=== PATIENT | female | born 1955 ===

== ENCOUNTER 2016-10-29 11:49 | Emergency (ER) | payer OTHER ==
[2016-10-29 11:54] VITALS: BP 155/77; PULSE 78; RESP 20; TEMP 98.6; O2SAT 98
--- NOTE | 2016-10-29 12:16 | ED PDOC ---
Lower Extremity Pain/Injury Time Seen by Provider: 10/29/16 11:59 Chief Complaint (Provider): Left ankle swelling History Per: Patient History/Exam Limitations: no limitations Onset/Duration Of Symptoms: Hrs Current Symptoms Are (Timing): Still Present Additional Complaint(s): 61 y/o female presents to the emergency department with a complaint of a left ankle swelling and mild right knee pain after sustaining a fall and landing on her knee around 8am this morning, 10/29/2016. Denies pulling sensation or any popping/cracking sounds. Past Medical History Reviewed: Historical Data, Nursing Documentation, Vital Signs Vital Signs: Last Vital Signs Temp 98.6 F 10/29/16 11:53 Pulse 78 10/29/16 11:53 Resp 20 10/29/16 11:53 BP 155/77 H 10/29/16 11:53 Pulse Ox 98 10/29/16 11:53 - Medical History PMH: No Chronic Diseases - Surgical History Surgical History: No Surg Hx - Family History Family History: States: Unknown Family Hx - Home Medications Home Medications: Ambulatory Orders Medication Instructions Recorded Ibuprofen [Motrin] 600 mg PO Q6 #20 tab 10/29/16 - Allergies Allergies/Adverse Reactions: Allergies Allergy/AdvReac Type Severity Reaction Status Date / Time No Known Allergies Allergy Verified 10/29/16 12:09 Review of Systems ROS Statement: Except As Marked, All Systems Reviewed And Found Negative Musculoskeletal: Positive for: Foot Pain (Left ankle swelling), Other (Mild right knee pain) Physical Exam - Reviewed Nursing Documentation Reviewed: Yes Vital Signs Reviewed: Yes - Physical Exam Appears: Positive for: Non-toxic, No Acute Distress Head Exam: Positive for: ATRAUMATIC, NORMAL INSPECTION Skin: Positive for: Normal Color, Warm, Dry Extremity: Positive for: Tenderness, Capillary Refill (DP pulses 2+. Distal sensation intact. ), Swelling (Mild edema below lateral malleolus). Negative for: Other (No ecchymosis) Neurologic/Psych: Positive for: Alert, Oriented (x3) - ECG O2 Sat by Pulse Oximetry: 98 (RA) Pulse Ox Interpretation: Normal Medical Decision Making Medical Decision Making: Time: 12:10 Initial impression: left ankle swelling Initial plan: --Left Ankle x-ray --Left foot x-ray --Reevaluation Time: 12:31 --X-ray read by me and show no acute findings. Time: 12:35 Patient is medically stable, and requires no further treatment in the ED at this time. Patient will be discharged home with Rx for Motrin 600 mg. Counseling was provided and all questions were answered regarding diagnosis and need for follow up with podiatry clinic. There is agreement to discharge plan. Return if symptoms persist or worsen. Clinical Impression: Ankle injury/sprain Scribe Attestation: Documented by Ling Shirley, acting as a scribe for Aisha Faustin PA-C Provider Scribe Attestation: All medical record entries made by the Scribe were at my direction and personally dictated by me. I have reviewed the chart and agree that the record accurately reflects my personal performance of the history, physical exam, medical decision making, and the department course for this patient. I have also personally directed, reviewed, and agree with the discharge instructions and disposition. Disposition - Clinical Impression Clinical Impression: Ankle injury, Ankle sprain - Patient ED Disposition Is Patient to be Admitted: No Counseled Patient/Family Regarding: Studies Performed, Diagnosis, Need For Followup, Rx Given - Disposition Referrals: Podiatry Clinic [Outside] Disposition: Routine/Home Disposition Time: 12:35 Condition: STABLE Prescriptions: Ibuprofen [Motrin] 600 mg PO Q6 #20 tab Instructions: Ankle Sprain (ED), RICE Therapy (ED) Forms: [facility] (Slovak) - POA Present On Arrival: Falls Or Trauma
--- NOTE | 2016-10-29 14:37 | RAD ---
PROCEDURE: Left Foot Radiographs. HISTORY: pain s/p twist injury COMPARISON: None available. FINDINGS: BONES: Osseous demineralization. No acute displaced fracture. Evidence of prior osteotomy of the 1st digit. Chronic appearing irregular contour of the mid and distal 5th phalanx. JOINTS: No dislocation. SOFT TISSUES: Soft tissue swelling. OTHER FINDINGS: None. IMPRESSION: Soft tissue swelling. Additional findings as above
== END 2016-10-29 13:13 | disposition home or self-care (01) ==
LOC: H.ER 11:49
DX: S93.402A Sprain of unspecified ligament of left ankle, initial encounter (principal); W19.XXXA Unspecified fall, initial encounter; Y92.89 Other specified places as the place of occurrence of the external cause